=== PATIENT | female | born 1995 | race Caucasian/White ===

== ENCOUNTER 2016-09-28 06:38 | Emergency (ER) | payer MEDICAID, OTHER ==
[~2016-09-28] VITALS: Ht 170.2 cm; Wt 68.2 kg
[~2016-09-28 06:38] MED LIST: PREN-56
[2016-09-28 07:31] VITALS: BP 120/60
== END 2016-09-28 08:32 | disposition left against medical advice (07) ==
LOC: ER 07:23
DX: H05.231 Hemorrhage of right orbit (principal); Z90.49 Acquired absence of other specified parts of digestive tract; Z90.89 Acquired absence of other organs; W22.09XA Striking against other stationary object, initial encounter; Y93.89 Activity, other specified; Y99.8 Other external cause status; Y92.89 Other specified places as the place of occurrence of the external cause
CPT/HCPCS: 99282

== ENCOUNTER 2018-12-15 21:28 | Emergency (ER) | payer OTHER ==
[~2018-12-15] VITALS: Ht 162.6 cm; Wt 61.0 kg
[2018-12-15] MEDS ORDERED: GLUCAGON,HUMAN RECOMBINANT 1MG/VIAL IM ONE (22:30)
[2018-12-15] MEDS ORDERED: KETOROLAC 60MG/2ML VIAL IM ONE (22:30)
[2018-12-15 23:46] VITALS: BP 110/71
== END 2018-12-15 23:47 | disposition home or self-care (01) ==
LOC: ER 21:28
DX: R13.10 Dysphagia, unspecified (principal)
CPT/HCPCS: 81025; 96372; 99283; J1610; J1885